=== PATIENT | male | born 1945 | race Caucasian/White ===

== ENCOUNTER 2017-10-21 15:17 | Inpatient (IN) | payer MEDICARE, MEDICAID ==
[~2017-10-21] VITALS: Ht 188 cm; Wt 134.3 kg
--- NOTE | ~2017-10-21 | EC ---
PATIENT:VANDANA WILKINSON DATE OF SERVICE: 10/21/17 SEX: M MEDICAL RECORD: [id number] DATE OF : 41 LOCATION:D.M2 D.211 AGE OF PATIENT: 71 ADMISSION DATE: 10/21/17 REFERRING PHYSICIAN: INTERPRETING PHYSICIAN: HELENA CHAMBERS MD ECHOCARDIOGRAM REPORT ECHO CHARGES 5 ECHO LIMITED Date: 10/26 CLINICAL DIAGNOSIS: MO ECHOCARDIOGRAPHIC MEASUREMENTS (adult normal given) AC root (d.<3.7cm) 3.7 cm LV Septum d (<1.2 cm> 2.7 cm Valve Excursion 1.9 cm LV Septum (systole) 3.4 cm Left Atria (s.<4.0cm> 5.5 cm LVPW d(<1.2cm) 2.9 cm RV (d.<2.3cm) 4.8 cm LVPW (sytole) 3.3 cm LV diastole(<5.6CM) 4.1 cm MV E-F(>70mm/sec) cm LV systole 2.1 cm LVOT Diameter 1.8 cm MV exc.(>10mm) 2.2 cm Est.ejection fraction (50-75%) % DOPPLER: LVIT cm/sec A cm/sec E cm/sec LA cm/sec RVSP 18 mmHg LVOT cm/sec AOP1/2T m/s Asc. Ao cm/sec RVOT cm/sec RA cm/sec PA cm/sec AV Gradient Peak mmHg AV Mean mmHg AV Area cm MV Gradient Peak mmHg MV Mean mmHg MV Area cm COMMENTS: Credit Collections Clerk: Morales ROGERS Coater Smoking Pipe: 1 Dr. Chambers TAPE# PACS Pericardial Effusion N DATE OF SERVICE: 10/26/2017 PROCEDURE: Echocardiogram. FINDINGS: 1. Left ventricular chamber size is within normal limits. Left ventricular systolic function is preserved at 55% to 60%. 2. Severe left ventricular hypertrophy is present with reversal of mitral inflow pattern suggestive of diastolic dysfunction from this degree of left ventricular hypertrophy. ECHOCARDIOGRAM REPORT [id number] VANDANA WILKINSON 3. Left atrium is enlarged at 5.5 cm. Right atrium and right ventricle chamber sizes are as well moderately dilated. 4. Valvular structures have normal structure and motion. 5. Doppler interrogation reveals mild mitral regurgitation, mild tricuspid regurgitation, no other valvular insufficiency or stenosis. Pulmonary systolic pressure is normal at 18 mmHg. 6. No evidence of pericardial effusion or left ventricular thrombus. TRANSINT:[id number] Voice Confirmation ID: [id number] DOCUMENT ID: [id number] HELENA CHAMBERS MD at 1741 CC: [id number] DICTATION DATE: 10/27/17 1038 WRAPPING CLERK: 10/27/17 1202 ADM IN [facility] [address] [place] [address]
--- NOTE | ~2017-10-21 | OP ---
PATIENT NAME: VANDANA WILKINSON MEDICAL RECORD: [id number] :41 LOCATION:D.M2 D.2116 ADMISSION DATE:10/21/17 SURGEON: HELENA ARRIETA MD DATE OF OPERATION: 11/01/2017 PROCEDURES: 1. PTCA stent RCA. 2. Selective coronary angiography. 3. Intravascular ultrasound. INDICATION: Angina and coronary artery disease. PROCEDURE IN DETAIL: After informed consent was obtained and after a detailed description of the risks, benefits as well as alternative therapies, the patient elected to proceed with angiogram and angioplasty. The right femoral area was prepped and draped in normal sterile fashion. Right femoral artery was cannulated via modified Seldinger technique with placement of 6-Bahamian sheath. All catheters exchanged through this sheath. FINDINGS: The right coronary artery has a greater than 70% stenosis proximally confirmed by intravascular ultrasound. This was addressed with a 4.0 x 26 Integrity stent. Result was 0% residual stenosis. OVERALL IMPRESSION: Successful percutaneous transluminal coronary angioplasty stent of the right coronary artery going from greater than 70% initial stenosis to 0% residual. TRANSINT:[id number] Voice Confirmation ID: [id number] DOCUMENT ID: [id number] HELENA ARRIETA MD at 1100 CC: [id number] DICTATION DATE: 11/01/17 0948 ORCHARD PRUNER: 11/01/17 1039 DIS IN 11/02/17 [id number] [place] [address]
--- NOTE | ~2017-10-21 | CN ---
PATIENT NAME:VANDANA WILKINSON MEDICAL RECORD: [id number] : 41 LOCATION:RAPHAEL.2307 ADMIT DATE: 10/21/17 ACCOUNT: [id number] CONSULTING PHYSICIAN: HELENA ARRIETA MD REFERRING PHYSICIAN: DILMA WATSON MD DATE OF CONSULTATION: 10/25/2017 DIAGNOSES: 1. Angina. 2. Abnormal ECG. 3. Atrial fibrillation with rapid response. 4. Dermatitis. HISTORY OF PRESENT ILLNESS: This is a gentleman who was admitted with dermatitis, possible cellulitis, possible sepsis, who began having chest discomfort with a very fast heart rate, his heart rate is in the 200 range. He appears to be in atrial fibrillation at 200. He has no cardiac history. He has significant ST depression with this. PHYSICAL EXAMINATION: GENERAL APPEARANCE: Well-nourished, well-developed, appears stated age. Level of distress, comfortable. PSYCHIATRIC: Mental status, alert, normal affect. Orientation, oriented to time, place and person. EYES: Lids and conjunctiva, noninjected. No discharge, no pallor. ENT: Lips, teeth, gums, normal dentition. Oropharynx, no cyanosis, no pallor. NECK: Carotid arteries, bilateral normal upstroke, no bruits, no thrills. JUGULAR VEINS: No jugular venous pressure or distention. CERVICAL LYMPH NODES: Nontender, nonenlarged. THYROID: Not enlarged. Nontender. No nodules. LUNGS: Respiratory effort, unlabored. CHEST: Normal curvature. No thoracic deformity. No chest wall tenderness. Percussion, resonant. Auscultation, clear. No wheezes, no rales, no rhonchi. CARDIOVASCULAR: Precordial exam, nondisplaced. No heaves or pericardial thrills. Rate and rhythm, regular. Heart sounds, normal S1, normal S2. No S3, no gallop, no rub. Systolic murmur, not heard. Diastolic murmur, not heard. EXTREMITIES: No cyanosis, no edema. Peripheral pulses, full and equal in all extremities, except as noted. No bruits appreciated. ABDOMEN: Soft, nondistended. Normal aorta. No bruit. Nontender. No masses. Liver, nontender, no hepatomegaly. Spleen, nontender, no splenomegaly. MUSCULOSKELETAL: No joint tenderness. No joint swelling. No erythema. NEUROLOGICAL: Normal gait, normal strength, normal tone. SKIN: Warm and dry. OVERALL IMPRESSION: Chest pain with markedly abnormal ECG and a heart rate in the 200 range. Obviously, the penn will be pharmacologically slowing the heart. If we cannot slow it, we will perform DC cardioversion. We will try IV Cardizem as well as IV Lopressor for rate control. TRANSINT:[id number] Voice Confirmation ID: [id number] DOCUMENT ID: [id number] CONSULT REPORT [id number] VANDANA WILKINSON, HELENA HOLMAN at 2001 CC: [id number] DICTATION DATE: 10/25/17 1527 EXPENSE CLERK: 10/25/17 1635 ADM IN [facility] [address] [place] [address]
--- NOTE | ~2017-10-21 | HEMODYNAMI ---
PATIENT:VANDANA WILKINSON MEDICAL RECORD: [id number] : 41 LOCATION:[facility] D.2307 ADMISSION DATE: 10/21/17 Generatedon:10/29/201710:16 Patient name: VANDANA WILKINSON Patient #: [id number] SSN: : 1945 Date of study: 10/29/2017 Page: Of Hemodynamic Procedure Report Patient Data Patient Demographics Procedure consent was obtained First Name: VANDANA Gender: Male Last Name: JAJA : 1945 Middle Initial: W Age: 71 year(s) Patient #: [id number] Race: Unknown Additional ID: [id number] Contact details Address: [address] [place] [address] State: [place] City: [place] Zip code: [address] Admission Admission Data Admission Date: 10/21/2017 Admission Time: 18:20 Room #: D.2307 Lab Results Lab Result Date: 10/29/2017 Lab Result Time: 0:00 Biochemistry Name Units Result Min Max BUN mg/dl 18 --(---*)-- 7 18 Creatinine mg/dl 1 --(--*-)-- 0.6 1.3 CBC Name Units Result Min Max Hemoglobin g/dl 41.6 --(----)-* 13.5 17.5 Procedure Procedure Types Cath Procedure Diagnostic Procedure [facility] w/Coronaries FFR/IVUS Intra-Coronary IVUS Initial Sedation Charges Moderate Sedation up to 15 minutes PCI Procedure Coronary Stent Coronary Stent Initial x2 Procedure Description Procedure Date Procedure Date: 10/29/2017 Procedure Start Time: 9:53 Procedure End Time: 10:14 Procedure Staff Name Function Asad Chambers MD Performing Physician Kita Hearn RT Monitor Mega Arana RN Nurse Brianna Goodrich RT Scrub Procedure Data Cath Procedure Fluoroscopy Diagnostic fluoroscopy Total fluoroscopy Time: 5.4 time: 5.4 min min Diagnostic fluoroscopy Total fluoroscopy dose: dose: 1290 mGy 1290 mGy Contrast Material Contrast Material Type Amount (ml) Isovue 300 102 Entry Location Entry Primary Successful Side Size Upsize Upsize Entry Closure Jaime ccessful Closure Location (Fr) 1 (Fr) 2 (Fr) Remarks Device Remarks Radial Right 6 Fr Manual TR band artery Short Compression Estimated blood loss: 10 ml Diagnostic catheters Device Type Used For End Catheter Placement DIAGNOSTIC [place] 110cm 5 Procedure Fr catheter ([id number]) Procedure Complications No complications Procedure Medications Medication Administration Route Dosage Oxygen NC 2 l/min Lidocaine 2% added to field 20 Heparin Flush Bag added to field 2 bags (1000units/500ml NS) 0.9% NaCl I.V. 100 ml/hr Radial Cocktail I.A. 1 syringe (Verapomil 2mg/Nitro 400mcg/Heparin 1500units) Versed I.V. 1 mg Fentanyl I.V. 50 mcg Versed I.V. 1 mg Fentanyl I.V. 50 mcg Heparin Bolus I.V. 4000 units 0.9% NaCl I.V. bolus 250 ml Versed I.V. 1 mg Fentanyl I.V. 50 mcg Hemodynamics Rest HGB: 41.6 (g/dl) Heart Rate: 68 (bpm) Snapshots Pre Cath Intra NCS Post Cath Vital Signs Time Heart Resp SPO2 etCO2 NIBP (mmHg) Rhythm Pain Sedation Rate (ipm) (%) (mmHg) Status Level (bpm) 8:49:24 66 10 95 0 113/70(92) NSR 0 (11) 10(A) , No pain 8:53:58 61 18 94 11.2 131/62(86) NSR 0 (11) 10(A) , No pain 8:58:35 60 16 97 14.9 164/70(133) NSR 0 (11) 10(A) , No pain 9:07:33 62 17 98 0 148/67(0) NSR 0 (11) 10(A) , No pain 9:14:39 61 13 96 17.9 139/71(106) NSR 0 (11) 10(A) , No pain 9:19:02 59 13 96 30.7 145/63(113) NSR 0 (11) 10(A) , No pain 9:23:22 59 15 97 30.7 134/57(103) NSR 0 (11) 10(A) , No pain 9:28:43 59 13 96 24.7 147/59(99) NSR 0 (11) 10(A) , No pain 9:33:03 59 13 96 15.7 157/69(109) NSR 0 (11) 10(A) , No pain 9:37:19 58 13 95 32.2 112/54(81) NSR 0 (11) 10(A) , No pain 9:41:33 56 13 95 31.4 99/50(75) NSR 0 (11) 10(A) , No pain 9:45:39 55 12 96 31.4 101/46(69) NSR 0 (11) 10(A) , No pain 9:49:51 53 12 96 31.4 105/41(66) NSR 0 (11) 10(A) , No pain 9:54:03 56 12 96 31.4 95/44(75) NSR 0 (11) 9(A) , No pain 9:59:02 61 12 94 29.2 Measuring NSR 0 (11) 9(A) , No pain 10:05:58 64 13 95 30.7 78/54(0) NSR 0 (11) 9(A) , No pain 10:10:16 66 12 95 32.2 97/44(68) NSR 0 (11) 9(A) , No pain 10:14:22 64 13 95 29.9 115/53(85) NSR 0 (11) 10(A) , No pain Medications Time Medication Route Dose Verified Delivered Reason Note s Effectiveness by by 8:47:26 Oxygen NC 2 l/min Asadaura Ayoub used for Reyes Arana RN procedure 8:47:33 Lidocaine 2% added 20ml Asad Kamara for local to vial Reyes Chambers MD anesthetic field 8:47:39 Heparin Flush added 2 bags Asad Kamara used for Bag to Reyes Chambers MD procedure (1000units/500ml field NS) 8:47:46 0.9% NaCl I.V. 100 Asad Ayoub Per physician ml/hr Reyes Arana RN 8:57:04 Radial Cocktail I.A. 1 Asad Kamara for (Verapomil syringe Reyes Chambers MD vasodilation 2mg/Nitro 400mcg/Heparin 1500units) 9:52:27 Versed I.V. 1 mg Asad Ayoub for sedation Reyes Arana RN 9:52:32 Fentanyl I.V. 50 mcg Asad Howardie for sedation Reyes Arana RN 9:54:34 0.9% NaCl I.V. 250 ml Asad Howardie Per physician bolus Reyes Arana RN 9:55:41 Versed I.V. 1 mg Asad Buffie for sedation Reyes Arana RN 9:55:45 Fentanyl I.V. 50 mcg Asad Buffie for sedation Reyes Arana RN 9:59:23 Heparin Bolus I.V. 4000 Asad Buffie for units Reyes Arana RN anticoagulation 10:02:55 Versed I.V. 1 mg Asad Buffie for sedation Reyes Arana RN 10:02:59 Fentanyl I.V. 50 mcg Asad Howardie for sedation Reyes Arana RN Procedure Log Time Note 8:20:07 Lab Result : BUN 18 mg/dl 8:20:07 Lab Result : Hemoglobin 41.6 g/dl 8:20:07 Lab Result : Creatinine 1 mg/dl 8:20:37 Diagnostic Cath status Elective 8:20:38 Asad Chambers MD sent for patient. Start room use. 8:20:40 Time tracking: Regular hours (M-F 7:00 - 5:00) 8:20:48 Plan of Care:Hemodynamics will remain stable., Cardiac rhythm will remain stable., Comfort level will be maintained., Respiratory function will remain adequate., Patient/ family verbilizes understanding of procedure., Procedure tolerated without complication., Recovers from procedure without complications.. 8:45:46 Patient received from ICU to [facility] 2 Alert and oriented. Tansferred to table in Supine position. 8:45:49 Warm blankets applied, and alan hugger turned on for patient comfort. 8:45:50 Correct patient and procedure confirmed by team. 8:45:51 Signed procedure consent form obtained from patient. 8:45:52 ECG and BP/O2 sat monitors applied to patient. 8:45:57 Baseline sample Acquired. 8:46:00 Rhythm: sinus rhythm 8:46:01 Full Disclosure recording started 8:46:06 H&P Date Dictated: 10/29/2017 Within 30 days and on chart., H&P Addendum completed by physician on day of procedure. (MUST COMPLETE FOR ALL OUTPATIENTS). 8:46:07 Pre-procedure instructions explained to patient. 8:46:07 Pre-op teaching completed and patient verbalized understanding. 8:46:09 Family in waiting room. 8:46:10 Patient NPO since Midnight. 8:46:13 Is the patient allergic to Iodine/contrast media? No. 8:46:14 Was the patient premedicated? No 8:46:15 Is patient on blood thinner?Yes 8:46:18 ACC The patient was administered the following blood thiners within the last 24 hours: ACCPlavix 8:47:26 Oxygen 2 l/min NC was administered by Mega Arana RN; used for procedure; 8:47:33 Lidocaine 2% 20ml vial added to field was administered by Asad Chambers MD; for local anesthetic; 8:47:39 Heparin Flush Bag (1000units/500ml NS) 2 bags added to field was administered by Asad Chambers MD; used for procedure; 8:47:46 0.9% NaCl 100 ml/hr I.V. was administered by Mega Arana RN; Per physician; 8:47:49 Vital chart was started 8:48:43 Patient diabetic? Yes. 8:48:44 If diabetic: On Metformin? Yes 8:48:47 If on Metformin: Last Dose? 10/27/2017 8:48:50 Previous problem with sedation/anesthesia? No ? 8:48:54 Snore? No 8:48:55 Sleep apnea? No 8:48:56 Deviated septum? No 8:48:57 Opens mouth fully? Yes 8:48:58 Sticks out tongue? Yes 8:48:59 Airway obstruction? No ? 8:49:05 Dentures? No ? 8:49:09 Pre procedure: right dorsailis pedis pulse 2+ Normal; easily identifiable; not easily obliterated 8:49:11 Pre procedure: left dorsailis pedis pulse 2+ Normal; easily identifiable; not easily obliterated 8:49:13 Patient pain scale 0/10 ?. 8:49:26 IV patent on arrival in port with 0.9% NaCl at KVO. 8:49:29 Lab results completed and on chart. 8:49:35 Right Radial & Right Groin area was prepped with chlora-prep and draped in sterile fashion 8:49:36 Alarms reviewed by R. N. 8:49:36 Sharps counted by scrub and verified by R.N. 8:57:04 Radial Cocktail (Verapomil 2mg/Nitro 400mcg/Heparin 1500units) 1 syringe I.A. was administered by Asad Chambers MD; for vasodilation; 9:01:21 Use device set Radial Dx or PCI 9:01:29 ACIST Syringe (60180) opened to sterile field. 9:01:31 Medline Cath Pack ([id number]) opened to sterile field. 9:01:32 Bag Decanter (2002S) opened to sterile field. 9:01:32 DIAGNOSTIC WIRE .035 260cm J wire (335839) opened to sterile field. 9:01:33 ACIST Hand Control (16417) opened to sterile field. 9:01:34 ACIST Manifold (13698) opened to sterile field. 9:01:35 Tegaderm 4 x 4 (1626W) opened to sterile field. 9:01:36 MBrace Wrist Support ([id number]) opened to sterile field. 9:01:43 SHEATH 6Fr Prelude Radial ([id number]) opened to sterile field. 9:02:20 STOPCOCK 3-Way Large Bore ([id number]) opened to sterile field. 9:17:32 Zero performed for pressure channel P1 9:17:50 Physician arrived 9:52:03 --------ALL STOP TIME OUT------ 9:52:05 Final Timeout: patient, procedure, and site verified with staff and physician. All members of the team are in agreement. 9:52:08 Right Radial & Right Groin site verified by team. 9:52:12 Physical assessment completed. ASA score P 2 - A patient with mild systemic disease as per Asad Chambers MD. 9:52:15 Sedation plan: IV Moderate Sedation Medication:Versed, Fentanyl 9:52:27 Versed 1 mg I.V. was administered by Mega Arana RN; for sedation; 9:52:32 Fentanyl 50 mcg I.V. was administered by Mega Arana RN; for sedation; 9:52:33 Procedure started. 9:53:07 Local anesthetic to right radial artery with Lidocaine 2% by Asad Chambers MD.INITIAL ACCESS ONLY 9:53:53 A 6 Fr Short sheath was inserted into the Right Radial artery 9:54:34 0.9% NaCl 250 ml I.V. bolus was administered by Mega Arana RN; Per physician; 9:54:57 A DIAGNOSTIC [place] 110cm 5 Fr catheter (529467) was advanced over the wire and used for Procedure. 9:55:22 LV angiography performed. 9:55:41 Versed 1 mg I.V. was administered by Mega Arana RN; for sedation; 9:55:45 Fentanyl 50 mcg I.V. was administered by Mega Arana RN; for sedation; 9:56:05 Catheter removed. 9:56:14 EF : 50 % 9:56:31 LCA angiography performed. 9:56:36 RCA angiography performed. 9:56:48 Catheter removed. 9:59:18 GUIDE 6FR XB 3.5 catheter ([id number]) opened to sterile field. 9:59:21 INFLATOR Merit BasixCompak (DC3461) opened to sterile field. 9:59:22 CHOICE PT Extra Support 182cm wire ([id number]) opened to sterile field. 9:59:23 Heparin Bolus 4000 units I.V. was administered by Mega Arana RN; for anticoagulation; 9:59:23 Alturas [place] IVUS Catheter (82884S) opened to sterile field. 9:59:53 6 Fr XB3.5 guide catheter was inserted over the wire 10:00:01 choice PT wire advanced. 10:00:54 Wire advanced across lesion. 10:00:57 IVUS catheter advanced over wire. 10:01:04 IVUS catheter removed over wire. 10:02:55 Versed 1 mg I.V. was administered by Mega Arana RN; for sedation; 10:02:59 Fentanyl 50 mcg I.V. was administered by Mega Arana RN; for sedation; 10:03:02 Place stent Inflation Number: 1 A INTEGRITY RX 3.5 x 18 stent ([id number]) was prepped and advanced across the Mid CX. The stent was deployed at 13 AZAEL for 0:10 (min:sec). 10:03:28 Wire redirected to LAD. 10:05:02 Inflate balloon Inflation number: 1 A INTEGRITY RX 3.5 x 15 stent ([id number]) was prepped and advanced across the Mid LAD, then inflated to 17 AZAEL for 0:10 (min:sec). 10:06:27 Wire removed. 10:06:54 Wire redirected to CX. 10:09:54 Place stent Inflation Number: 1 A INTEGRITY RX 3.0 x 09 stent ([id number]) was prepped and advanced across the Undefined1. The stent was deployed at 13 AZAEL for 0:10 (min:sec). 10:10:11 TR BAND Large ([id number]) opened to sterile field. 10:11:12 Wire removed. 10:11:28 Sheath removed intact; hemostasis achieved with Manual Compression to the Right Radial artery. 10:11:32 Procedure ended.(Physican Out) 10:11:46 Fluoroscopy time 05.40 minutes. 10:11:51 Fluoroscopy dose: 1290 mGy 10:11:51 Flurop Dose total: 1290 10:12:01 Contrast amount:Isovue 300 102ml. 10:12:02 Sharps counted by scrub and verified by R.N. 10:12:06 TR band inflated with 11cc of air. 10:12:08 Insertion/operative site no bleeding no hematoma. 10:12:15 Post right radial artery:stable 10:12:19 Post-procedure physical assessment completed. ASA score P 2 - A patient with mild systemic disease as per Asad Chambers MD. 10:12:22 Post procedure rhythm: sinus rhythm 10:12:26 Estimated blood loss: 10 ml 10:12:28 Post procedure instruction explained to patient.Patient verbalizes understanding. 10:13:14 Procedure type changed to Cath procedure, Diagnostic procedure, LHC, LHC w/Coronaries, FFR/IVUS, Intra-Coronary IVUS Initial, Sedation Charges, Moderate Sedation up to 15 minutes, PCI procedure, Coronary Stent, Coronary Stent Initial x2 10:13:15 Procedure and supply charges have been captured, reviewed, submitted and are correct. 10:13:47 Procedure Complication : No complications 10:13:50 Vital chart was stopped 10:13:53 See physician's report for complete and final results. 10:14:06 Patient transfered to ICU with Bed. 10:14:08 Procedure ended. 10:14:08 Full Disclosure recording stopped 10:14:12 End room use (Document Last) Intervention Summary Intervention Notes Time ActionType Lesion and Equipment Action# Pressure Duration Attributes Used 10:03:02 Place stent Mid CX INTEGRITY RX 1 13 00:10 3.5 x 18 stent ([id number]) 10:05:02 Inflate Mid LAD INTEGRITY RX 1 17 00:10 balloon 3.5 x 15 stent ([id number]) 10:09:54 Place stent Undefined1 INTEGRITY RX 1 13 00:10 3.0 x 09 stent ([id number]) Device Usage Item Name Manufacture Quantity Catalog Number Hospital Part Current M inimal Lot# / Charge Number Stock Stock Serial# Code ACIST Syringe Acist 1 49093 341145 930952 948655 2 0 (26791) Medical Systems Inc Medline Cath Cardinal 1 [id number] 021230 08741 282889 5 Pack Health ([id number]) Bag Decanter Microtek 1 2001S 207292 50212 991466 5 () Medical Inc. DIAGNOSTIC WIRE St Alek 1 347591 618774 060357 818180 3 0 .035 260cm J wire (556336) ACIST Hand Acist 1 07911 566062 676537 185030 5 Control (47555) Medical Systems Inc ACIST Manifold Acist 1 90816 223351 532975 553751 5 (96780) Medical Systems Inc Tegaderm 4 x 4 3M 1 1626W 317378 021926 170729 5 (1626W) MBrace Wrist Advanced 1 140-0250-00 075617 16340 730733 5 Support Vascular ([id number]) Dynamics SHEATH 6Fr Merit 1 [id number] 681697 052157 272982 5 Prelude Radial Medical ([id number]) STOPCOCK 3-Way Cook Medical 1 I28646 081222 3029 564676 5 Large Bore ([id number]) DIAGNOSTIC Terumo 1 40-4599 451986 146317 898177 5 [place] 110cm 5 Fr catheter (168895) GUIDE 6FR XB Cardinal 1 [id number] 470987 918855 709860 2 3.5 catheter Health (72720449) INFLATOR Merit Merit 1 XU3850 655801 353332 310523 1 5 Nurture, Inc. (ZC9267) CHOICE PT Extra [place] 1 [id number] 597429 612596 485312 5 Support 182cm Scientific wire ([id number]) Alturas Alturas 1 20933X 548217 235512 235632 8 [place] IVUS Catheter (12978S) INTEGRITY RX Medtronic 1 [id number] 462664 813977 980694 5 [id number] 3.5 x 18 stent ([id number]) INTEGRITY RX Medtronic 1 [id number] 139408 876025 520539 5 [id number] 3.5 x 15 stent ([id number]) INTEGRITY RX Medtronic 1 [id number] 093079 053032 364375 5 [id number] 3.0 x 09 stent ([id number]) TR BAND Large Terumo 1 [id number] 790071 187434 940438 4 0 ([id number]) Signature Audit [place] Stage Time Signature Unsigned Intra-Procedure 10/29/2017 Kita Hearn 10:16:53 AM RT(R) Signatures Monitor : Kita Hearn Signature : RT Date : Time : [place] [id number] [place] [address]
--- NOTE | ~2017-10-21 | CN ---
PATIENT NAME:VANDANA WILKINSON MEDICAL RECORD: [id number] : 41 LOCATION:[facility] D.2116 ADMIT DATE: 10/21/17 ACCOUNT: [id number] CONSULTING PHYSICIAN: LIDIA SALGADO MD REFERRING PHYSICIAN: STALIN ALFARO MD DATE OF CONSULTATION: 10/26/2017 CONSULT REQUESTING PHYSICIAN: Stalin Alfaro MD REASON FOR CONSULTATION: Right lower lobe pneumonia, right pleural effusion. HISTORY OF PRESENT ILLNESS: Mr. Wilkinson is a 71-year-old gentleman who was admitted on 10/21 with a skin rash. Yesterday, the patient has acute chest pain and dyspnea and evaluation showed that the patient has acute myocardial infarction. He was also in atrial fibrillation and the rate has been controlled. Seen by Dr. Chambers. REVIEW OF SYSTEMS: As in history of present illness. PAST MEDICAL HISTORY: 1. Diabetes mellitus. 2. Hypertension. 3. Tobacco dependence syndrome, but no documented chronic obstructive pulmonary disease. PAST SURGICAL HISTORY: Brain aneurysm repair in February 1981. ALLERGIES: HE IS ALLERGIC TO PENICILLIN. MEDICATIONS: He is on vancomycin IV, Levaquin IV, Rocephin IV. PERSONAL AND SOCIAL HISTORY: The patient current everyday smoker, almost 2 pack per day. He is a nondrinker. FAMILY HISTORY: Noncontributory. PHYSICAL EXAMINATION: GENERAL: Now, the patient is lying comfortably in bed. He is not in acute distress. VITAL SIGNS: The blood pressure is 201/85, pulse is 62, respiration is 18, temperature is 98.4, and SpO2 is 97% on room air. HEENT: Conjunctivae are pink. Sclerae are not icteric. NECK: Supple, no JVD. CHEST: There are crackles at the right base. No wheezing. HEART: Rhythm regular, normal heart sound, no murmur. ABDOMEN: Soft, bowel sounds present. No hepatosplenomegaly. RECTAL: Deferred. EXTREMITIES: No cyanosis, no clubbing. There is 1+ pedal edema. SKIN: There is a skin rash, which is scaling now. IMAGING: Chest radiograph on the 25 October, there is a right-sided pleural effusion. There is atelectasis and infiltrate in the right lower lobe. There are increased interstitial marking. LABORATORY DATA: CBC: WBC 11,000, hemoglobin 13.2, hematocrit 41, the platelet CONSULT REPORT [id number] VANDANA WILKINSON count 206. Chemistry: Sodium 142, potassium 4.1, BUN is 18, creatinine 1.1, glucose 110. ABG: The pH was 7.38, pCO2 is 39.4, the pO2 is 136. Cardiac enzymes, the troponin is 2.05. IMPRESSION: 1. Acute myocardial infarction. 2. Pneumonia, right lower lobe, most likely community-acquired pneumonia. 3. Right pleural effusion, possible parapneumonic. 4. Tobacco dependence syndrome, suspect chronic obstructive pulmonary disease. 5. Leukocytosis. 6. Atrial fibrillation. 7. Skin rash. RECOMMENDATION: 1. Continue the present antibiotic. 2. Albuterol and ipratropium nebulizer. 3. Small dose of methylprednisolone IV. 4. We will check the decubitus film. If there is any significant fluid, the patient will need thoracentesis. Dr. Alfaro, thank you for involving me in the care of Mr. Wilkinson. TRANSINT:[id number] Voice Confirmation ID: [id number] DOCUMENT ID: [id number] LIDIA SALGADO MD at 1110 CC: [id number] DICTATION DATE: 10/26/17 1413 HOME CARE MANAGER: 10/26/17 1457 DIS IN 11/02/17 [id number] [place] [address]
--- NOTE | ~2017-10-21 | OP ---
PATIENT NAME: VANDANA WILKINSON MEDICAL RECORD: [id number] :41 LOCATION:D.M2 D.2116 ADMISSION DATE:10/21/17 SURGEON: HELENA ARRIETA MD DATE OF OPERATION: 10/29/2017 PROCEDURES: 1. PTCA and stent to the LAD. 2. PTCA and stent to the left circumflex. 3. Left heart catheterization. 4. Selective coronary angiography. 5. Intravascular ultrasound. 6. Left ventriculogram. INDICATION: Angina and coronary artery disease. PROCEDURE IN DETAIL: After informed consent was obtained and after a detailed description of risks, benefits as well as alternative therapies, the patient elected to proceed with angiogram and angioplasty. The right radial area was prepped and draped in normal sterile fashion. Right radial artery was cannulated via modified Seldinger technique with placement of 6-Croatian sheath. All catheters were exchanged for sheath. FINDINGS: The left ventriculogram was performed in standard 30-degree LOVELL view reveals preserved cardiac wall motion, ejection fraction 55%. SELECTIVE CORONARY ANGIOGRAPHY: 1. Left main is with no significant angiographic disease. 2. Left anterior descending has a 90% stenosis in the proximal vessel. 3. Left circumflex has 80% stenosis in the mid vessel confirmed by intravascular ultrasound. 4. Right coronary has at least 70% stenosis times 2. INSTRUCTIONAL LEADER AND STENT OF THE LAD AND CIRCUMFLEX: The LAD was addressed with a 3.5 x 15 mm Integrity and circumflex with a 3.5 x 18 and 3.0 x 8, both Integrity stents. Result was 0% residual stenosis. OVERALL IMPRESSION: Successful PTCA and stent of the left anterior descending and circumflex, both going from 80% to 90% initial stenosis to 0% residual stenosis. PLAN: PTCA and stent of the RCA in the near future. TRANSINT:[id number] Voice Confirmation ID: [id number] DOCUMENT ID: [id number] HELENA ARRIETA MD at 1746 CC: [id number] DICTATION DATE: 10/29/17 1012 CURING PRESS OPERATOR: 10/29/17 1047 ADM IN [facility] [address] [place] [address]
--- NOTE | ~2017-10-21 | HEMODYNAMI ---
PATIENT:VANDANA WILKINSON MEDICAL RECORD: [id number] : 41 LOCATION:[facility] D.2116 ADMISSION DATE: 10/21/17 Generatedon:11/01/201710:02 Patient name: VANDANA WILKINSON Patient #: [id number] SSN: : 1945 Date of study: 11/01/2017 Page: Of Hemodynamic Procedure Report Patient Data Patient Demographics Procedure consent was obtained First Name: VANDANA Gender: Male Last Name: JAJA : 1945 Middle Initial: W Age: 71 year(s) Patient #: [id number] Race: Unknown Additional ID: [id number] Contact details Address: [address] [address] State: [place] City: [place] Zip code: [address] Past Medical History Allergies Allergen Reaction Date Comments Reported Penicillins 11/01/2017 Admission Admission Data Admission Date: 10/21/2017 Admission Time: 18:20 Room #: D.2116 Lab Results Lab Result Date: 10/29/2017 Lab Result Time: 0:00 Biochemistry Name Units Result Min Max BUN mg/dl 18 --(---*)-- 7 18 Creatinine mg/dl 1 --(--*-)-- 0.6 1.3 CBC Name Units Result Min Max Hemoglobin g/dl 41.6 --(----)-* 13.5 17.5 Procedure Procedure Types Cath Procedure PCI Procedure Coronary Stent Coronary Stent Initial Procedure Description Procedure Date Procedure Date: 11/01/2017 Procedure Start Time: 9:30 Procedure End Time: 9:44 Procedure Staff Name Function Itzel Butler RT Monitor Asad Chambers MD Performing Physician Daron Andino RN Nurse Venita Garcia RT Scrub Procedure Data Cath Procedure Fluoroscopy Diagnostic fluoroscopy Total fluoroscopy Time: 3.1 time: 3.1 min min Diagnostic fluoroscopy Total fluoroscopy dose: 264 dose: 264 mGy mGy Contrast Material Contrast Material Type Amount (ml) Isovue 300 24 Entry Location Entry Primary Successful Side Size Upsize Upsize Entry Closure Succes sful Closure Location (Fr) 1 (Fr) 2 (Fr) Remarks Device Remarks Femoral Right 6 Fr Exoseal artery Short Estimated blood loss: 10 ml Procedure Complications No complications Procedure Medications Medication Administration Route Dosage 0.9% NaCl I.V. 100 ml/hr Oxygen etCO2 Nasal cannula 2 l/min Heparin Flush Bag added to field 2 bags (1000units/500ml NS) Lidocaine 2% added to field 20 Versed I.V. 2 mg Fentanyl I.V. 100 mcg Heparin Bolus I.V. 4000 units Fentanyl I.V. 100 mcg Hemodynamics Rest HGB: 41.6 (g/dl) Heart Rate: 64 (bpm) Snapshots Pre Cath Intra NCS Post Cath Vital Signs Time Heart Resp SPO2 etCO2 NIBP (mmHg) Rhythm Pain Sedation Rate (ipm) (%) (mmHg) Status Level (bpm) 9:13:03 60 15 95 37 153/77(128) NSR 0 (11) 10(A) , No pain 9:18:15 58 16 96 34.7 149/46(113) NSR 0 (11) 10(A) , No pain 9:23:14 67 17 98 36.3 152/85(130) NSR 0 (11) 10(A) , No pain 9:28:11 55 14 99 34.7 150/82(129) NSR 0 (11) 10(A) , No pain 9:33:08 57 15 98 27.2 159/81(137) NSR 0 (11) 10(A) , No pain 9:38:07 56 14 98 0.7 153/79(130) NSR 0 (11) 10(A) , No pain 9:43:06 58 11 99 37.7 155/80(122) NSR 0 (11) 10(A) , No pain Medications Time Medication Route Dose Verified Delivered Reason Notes Effectiveness by by 9:10:49 0.9% NaCl I.V. 100 Daron Daron Per physician ml/hr Thu Andino RN RN 9:11:02 Oxygen etCO2 2 Daron Daron Per physician Nasal l/min Thu Andino cannula RN RN 9:11:15 Heparin Flush added 2 Daron Daron used for Bag to bags Thu Andino procedure (1000units/500ml field RN RN NS) 9:11:28 Lidocaine 2% added 20ml Daron Daron for local to vial Thu Andino anesthetic field RN RN 9:28:24 Versed I.V. 2 mg Daron Daron for sedation Thu Andino RN RN 9:28:34 Fentanyl I.V. 100 Daron Daron for sedation mcg Thu Andino RN RN 9:34:18 Heparin Bolus I.V. 4000 Daron Daron for units Thu Andino anticoagulation RN RN 9:58:14 Fentanyl I.V. 100 Daron Daron for back pain abrahan Andino RN sapphire stylus grinder Log Time Note 8:37:40 Time tracking: Regular hours (M-F 7:00 - 5:00) 8:38:29 Plan of Care:Hemodynamics will remain stable., Cardiac rhythm will remain stable., Comfort level will be maintained., Respiratory function will remain adequate., Patient/ family verbilizes understanding of procedure., Procedure tolerated without complication., Recovers from procedure without complications.. 8:46:18 Daron Andino RN sent for patient. Start room use. 8:57:29 Patient received from PCU to CCL 1 Alert and oriented. Tansferred to table in Supine position. 8:57:30 Correct patient and procedure confirmed by team. 8:57:30 Warm blankets applied, and alan hugger turned on for patient comfort. 8:57:32 Signed procedure consent form obtained from patient. 8:57:33 ECG and BP/O2 sat monitors applied to patient. 8:57:34 Full Disclosure recording started 9:10:49 0.9% NaCl 100 ml/hr I.V. was administered by Daron Andino RN; Per physician; 9:11:02 Oxygen 2 l/min etCO2 Nasal cannula was administered by Daron Andino RN; Per physician; 9:11:15 Heparin Flush Bag (1000units/500ml NS) 2 bags added to field was administered by Daron Andino RN; used for procedure; 9:11:28 Lidocaine 2% 20ml vial added to field was administered by Daron Andino RN; for local anesthetic; 9:11:43 Vital chart was started 9:12:30 Rhythm: sinus rhythm 9:13:28 H&P Date Dictated: 10/25/2017 Within 30 days and on chart.. 9:13:29 Pre-op teaching completed and patient verbalized understanding. 9:13:29 Pre-procedure instructions explained to patient. 9:13:31 Family in patients room. 9:13:32 Patient NPO since Midnight. 9:13:40 Patient allergic to Penicillins 9:13:46 Is the patient allergic to Iodine/contrast media? No. 9:13:48 Is patient on blood thinner?Yes 9:14:09 ACC The patient was administered the following blood thiners within the last 24 hours: ACCPlavix 9:14:28 Patient diabetic? Yes. 9:14:29 If diabetic: On Metformin? Yes 9:14:33 If on Metformin: Last Dose? 10/27/2017 9:14:37 Snore? No 9:14:37 Previous problem with sedation/anesthesia? No ? 9:14:38 Sleep apnea? No 9:14:39 Deviated septum? No 9:14:40 Opens mouth fully? Yes 9:14:41 Sticks out tongue? Yes 9:14:43 Airway obstruction? No ? 9:14:44 Dentures? No ? 9:14:47 Pre procedure: right dorsailis pedis pulse 1+ Palpable, but thready & weak; easily obliterated 9:14:49 Patient pain scale 0/10 ?. 9:14:55 IV patent on arrival in port, Lt subclavian with 0.9% NaCl at KVO. 9:15:14 Lab results completed and on chart. 9:15:18 Right groin area was prepped with chlora-prep and draped in sterile fashion 9:15:19 Sharps counted by scrub and verified by R.N. 9:15:19 Alarms reviewed by R. N. 9:15:25 Use device set CATH PACK 9:15:26 ACIST Syringe (74896) opened to sterile field. 9:15:27 ACIST Manifold (43433) opened to sterile field. 9:15:27 ACIST Hand Control (70553) opened to sterile field. 9:15:28 Medline Cath Pack ([id number]) opened to sterile field. 9:15:29 DIAGNOSTIC WIRE .035 260cm J wire (052054) opened to sterile field. 9:15:29 Bag Decanter (2002) opened to sterile field. 9:15:31 Use device set TAUTH PCI 9:15:32 INFLATOR Merit BasixCompak (WH6551) opened to sterile field. 9:15:34 SHEATH Prelude 6Fr 0.035 (VQL-3P-21-035) opened to sterile field. 9:15:36 CHOICE PT Extra Support 182cm wire ([id number]) opened to sterile field. 9:16:01 Baseline sample Acquired. 9:16:12 Zero performed for pressure channel P1 9:16:15 Zero performed for pressure channel P1 9:16:29 Physician paged 9:27:40 Final Timeout: patient, procedure, and site verified with staff and physician. All members of the team are in agreement. 9:27:42 Right groin site verified by team. 9:27:46 Physical assessment completed. ASA score P 2 - A patient with mild systemic disease as per Asad Chambers MD. 9:27:49 Sedation plan: IV Moderate Sedation Medication:Versed, Fentanyl 9:28:24 Versed 2 mg I.V. was administered by Daron Andino RN; for sedation; 9:28:34 Fentanyl 100 mcg I.V. was administered by Daron Andino RN; for sedation; 9:30:48 Procedure started. 9:30:57 Local anesthetic to right femoral artery with Lidocaine 2% by Asad Chambers MD.INITIAL ACCESS ONLY 9:31:37 A 6 Fr Short sheath was inserted into the Right Femoral artery 9:32:45 [place] Nap[place]ute Eagleye IVUS Catheter (55814M) opened to sterile field. 9:32:46 GUIDE 6FR HS II catheter ([id number]) opened to sterile field. 9:33:00 6 Fr HS II guide catheter was inserted over the wire 9:34:13 CHOICE PT ES wire advanced. 9:34:18 Heparin Bolus 4000 units I.V. was administered by Daron Andino RN; for anticoagulation; 9:34:41 IVUS catheter advanced over wire. 9:34:52 IVUS pass to RCA lesion performed. 9:36:22 IVUS catheter removed over wire. 9:38:07 Place stent Inflation Number: 1 A INTEGRITY RX 4.0 x 26 stent ([id number]) was prepped and advanced across the Mid RCA. The stent was deployed at 17 AZAEL for 0:09 (min:sec). 9:38:27 Wire removed. 9:38:27 Stent catheter was removed intact over wire. 9:38:28 Guide catheter removed. 9:38:43 Sheath removed intact; hemostasis achieved with Exoseal to the Right Femoral artery. 9:38:45 Procedure ended.(Physican Out) 9:38:56 Fluoroscopy time 03.10 minutes. 9:39:00 Fluoroscopy dose: 264 mGy 9:39:00 Flurop Dose total: 264 9:39:03 Contrast amount:Isovue 300 24ml. 9:39:05 Sharps counted by scrub and verified by R.N. 9:39:08 Insertion/operative site no bleeding no hematoma. 9:39:14 Post-op/insertion site Right Femoral artery dressed using a 4 x 4 and Tegaderm. 9:39:18 Post right femoral artery:stable, clean and dry 9:40:52 Post Procedure Pulses reassessed and unchanged 9:40:56 Post-procedure physical assessment completed. ASA score P 2 - A patient with mild systemic disease as per Asad Chambers MD. 9:40:58 Post procedure rhythm: unchanged. 9:41:01 Estimated blood loss: 10 ml 9:41:03 Patient needs reinforcement of post procedure teaching. 9:41:03 Post procedure instruction explained to patient.Patient verbalizes understanding. 9:41:18 Procedure Complication : No complications 9:41:20 See physician's report for complete and final results. 9:41:43 EXOSEAL 6Fr (EX600) opened to sterile field. 9:41:44 Tegaderm 4 x 4 (1626W) opened to sterile field. 9:43:28 Post right femoral artery:bleeding 9:43:38 Femstop placed over the right femoral artery at 150 mmHg. Hemostasis achieved. 9:43:47 FEMSTOP Gold ([id number]) opened to sterile field. 9:44:08 Procedure and supply charges have been captured, reviewed, submitted and are correct. 9:44:09 Vital chart was stopped 9:44:12 Report given to PCU. 9:44:24 Full Disclosure recording stopped 9:58:14 Fentanyl 100 mcg I.V. was administered by Daron Andino RN; for back pain; 10:01:38 Patient transfered to PCU with Bed. 10:01:43 Procedure ended. 10:01:53 End room use (Document Last) Intervention Summary Intervention Notes Time ActionType Lesion and Equipment Action# Pressure Duration Attributes Used 9:38:07 Place stent Mid RCA INTEGRITY RX 1 17 00:09 4.0 x 26 stent ([id number]) Device Usage Item Name Manufacture Quantity Catalog Number Hospital Part Current Minimal Lot# / Charge Number Stock Stock Serial# Code ACIST Syringe Acist 1 93792 598821 956273 275980 20 (74536) [employer] Inc ACIST Hand Acist 1 46280 748867 866813 249046 5 Control (57097) [employer] Inc ACIST Manifold Acist 1 87501 158592 195851 680934 5 (06516) [employer] Inc Medline Cath Cardinal 1 [id number] 888484 50217 044868 5 Pack Health ([id number]) Bag Decanter Microtek 1 2001S 455892 22473 029612 5 (2001S) Medical Inc. DIAGNOSTIC WIRE St Alek 1 507150 642948 475558 829728 30 .035 260cm J wire (832463) INFLATOR Merit Merit 1 NA9927 925580 563640 062314 15 [place]rees (MP2668) SHEATH Prelude Merit 1 WSW-3X-31-35 600437 9067152 287424 5 6Fr 0.035 Medical (RSA-9O-67-035) CHOICE PT Extra [place] 1 [id number] 680579 693787 184142 5 Support 182cm Scientific wire ([id number]) [place] 1 31407O 052804 933825 499787 8 [place] Eagleye IVUS Catheter (85822A) GUIDE 6FR HS II Medtronic 1 [id number] 275824 62462 240008 1 catheter ([id number]) INTEGRITY RX Medtronic 1 [id number] 625546 543562 633549 5 [id number] 4.0 x 26 stent ([id number]) EXOSEAL 6Fr Cardinal 1 EX600 623022 212091 121427 10 (EX600) Health Tegaderm 4 x 4 3M 1 1626W 783746 104635 191511 5 (1626W) FEMSTOP Gold St Alek 1 [id number] 173512 530253 295915 5 ([id number]) Signature Audit [place] Stage Time Signature Unsigned Intra-Procedure 11/01/2017 Itzel Robbins Counts 9:44:43 AM Counts RT(R) RT(R) 11/01/2017 9:46:15 AM Intra-Procedure 11/01/2017 Itzel Robbins Counts 9:47:35 AM Counts RT(R) RT(R) 11/01/2017 9:55:22 AM Intra-Procedure 11/01/2017 Itzel 10:02:09 AM Counts RT(R) Signatures Monitor : Itzel Signature : Counts RT Date : Time : [id number] [facility] [place] [address]
[2017-10-21] MEDS ORDERED: GEMFIBROZIL600 MG PO (15:27)
[2017-10-21] MEDS ORDERED: GLUCOPHAGE1000 MG PO (15:27)
[2017-10-21] MEDS ORDERED: FUROSEMIDE20 MG PO (15:28)
[2017-10-21] MEDS ORDERED: VIBRAMYCIN 100100 MG (15:28)
[2017-10-21] MEDS ORDERED: VASOTEC20 MG PO (15:29)
[2017-10-21] MEDS ORDERED: BYSTOLIC5 MG PO (15:29)
[2017-10-21 16:57] LABS: BASOPHILS 0.7 % (0-2); EOSINOPHILS 10.2 % (0-7); HEMATOCRIT 44.6 % (42.0-54.0); HEMOGLOBIN 14.9 g/dL (13.5-17.5); IMMATURE GRANULOCYTES 0.2 % (0-5); LYMPHOCYTES 10.1 % (15-50); MCH 29.9 pg (26.0-34.0); MCHC 33.4 g/dL (31.0-37.0); MCV 89.6 fL (80.0-100.0); MEAN PLATELET VOLUME 9.1 fL (7.4-10.4); MONOCYTES 5.8 % (2-11); PLATELET COUNT 206 10x3/uL (130-400); RBC 4.98 10x6/uL (4.20-6.10); RDW 14.7 % (11.5-14.5); WBC 12.6 10x3/uL (4.8-10.8)
[2017-10-21 17:23] LABS: ALBUMIN 3.1 g/dL (3.4-5.0); ANION GAP 11.2 mmol/L (8-16); BILIRUBIN - TOTAL 0.26 mg/dL (0.2-1.3); CALCIUM 9.2 mg/dL (8.5-10.1); CARBON DIOXIDE 32.9 mmol/L (21.0-32.0); CREATININE - SERUM 2.2 mg/dL (0.6-1.3); POTASSIUM - SERUM 4.1 mmol/L (3.5-5.1); PROTEIN - SERUM 6.9 g/dL (6.4-8.2)
[2017-10-21] MEDS ORDERED: BENADRYL25 MG PO (20:37)
[2017-10-21] MEDS ORDERED: AZO CRANBERRY (20:39)
[2017-10-21] MEDS ORDERED: CALADRYL (20:40)
[2017-10-22] VITALS (7 sets, daily range): BP systolic 126–187; BP diastolic 61–92; Ht 188 cm; Wt 134.3 kg
[2017-10-22 07:14] LABS: ANION GAP 12.3 mmol/L (8-16); CALCIUM 8.5 mg/dL (8.5-10.1); CARBON DIOXIDE 29.3 mmol/L (21.0-32.0); POTASSIUM - SERUM 3.6 mmol/L (3.5-5.1)
[2017-10-22 07:16] LABS: CREATININE - SERUM 1.5 mg/dL (0.6-1.3)
[2017-10-22 07:34] LABS: BASOPHILS 0.6 % (0-2); HEMATOCRIT 44.8 % (42.0-54.0); HEMOGLOBIN 14.8 g/dL (13.5-17.5); IMMATURE GRANULOCYTES 0.2 % (0-5); MCH 29.8 pg (26.0-34.0); MCV 90.1 fL (80.0-100.0); MEAN PLATELET VOLUME 9.2 fL (7.4-10.4); MONOCYTES 5.5 % (2-11); NEUTROPHILS 63.7 % (40-80); PLATELET COUNT 209 10x3/uL (130-400); RBC 4.97 10x6/uL (4.20-6.10); RDW 14.9 % (11.5-14.5)
[2017-10-22 07:45] LABS: WBC 8.9 10x3/uL (4.8-10.8)
[2017-10-23 04:01] VITALS: BP 125/88
[2017-10-23 05:24] LABS: BASOPHILS 0.7 % (0-2); HEMATOCRIT 41.7 % (42.0-54.0); HEMOGLOBIN 13.4 g/dL (13.5-17.5); IMMATURE GRANULOCYTES 0.2 % (0-5); LYMPHOCYTES 15.1 % (15-50); MCH 29.1 pg (26.0-34.0); MCHC 32.1 g/dL (31.0-37.0); MCV 90.7 fL (80.0-100.0); MEAN PLATELET VOLUME 9.2 fL (7.4-10.4); MONOCYTES 5.7 % (2-11); NEUTROPHILS 66.3 % (40-80); PLATELET COUNT 211 10x3/uL (130-400); RDW 14.9 % (11.5-14.5); WBC 9.1 10x3/uL (4.8-10.8)
[2017-10-23 05:45] LABS: ALBUMIN 2.6 g/dL (3.4-5.0); BILIRUBIN - TOTAL 0.2 mg/dL (0.2-1.3); CALCIUM 8.3 mg/dL (8.5-10.1); CARBON DIOXIDE 26.9 mmol/L (21.0-32.0); CREATININE - SERUM 1.2 mg/dL (0.6-1.3); PROTEIN - SERUM 5.8 g/dL (6.4-8.2)
[2017-10-23 05:46] LABS: ANION GAP 10.3 mmol/L (8-16); POTASSIUM - SERUM 4.2 mmol/L (3.5-5.1)
[2017-10-23 08:55] VITALS: BP 189/75
[2017-10-23 12:12] VITALS: BP 193/77
[2017-10-23 16:12] VITALS: BP 170/79
[2017-10-23 20:00] VITALS: BP 163/83
[2017-10-23 23:49] VITALS: BP 161/72
[2017-10-24 04:00] VITALS: BP 188/71
[2017-10-24 06:24] LABS: ALBUMIN 2.7 g/dL (3.4-5.0); ANION GAP 13.4 mmol/L (8-16); BILIRUBIN - TOTAL 0.1 mg/dL (0.2-1.3); CALCIUM 8.5 mg/dL (8.5-10.1); CREATININE - SERUM 1.1 mg/dL (0.6-1.3); POTASSIUM - SERUM 4.4 mmol/L (3.5-5.1)
[2017-10-24 06:56] LABS: BASOPHILS 0.6 % (0-2); EOSINOPHILS 2.9 % (0-7); HEMOGLOBIN 13.2 g/dL (13.5-17.5); IMMATURE GRANULOCYTES 0.4 % (0-5); LYMPHOCYTES 15.8 % (15-50); MCH 29.3 pg (26.0-34.0); MCHC 32.2 g/dL (31.0-37.0); MCV 91.1 fL (80.0-100.0); MONOCYTES 5.3 % (2-11); PLATELET COUNT 206 10x3/uL (130-400); RDW 14.9 % (11.5-14.5)
[2017-10-24 08:11] VITALS: BP 194/94
[2017-10-24 12:15] VITALS: BP 205/94
[2017-10-24 16:18] VITALS: BP 189/69
[2017-10-24 20:47] VITALS: BP 159/88
[2017-10-24 23:51] VITALS: BP 174/74
[2017-10-25] VITALS (14 sets, daily range): BP systolic 112–229; BP diastolic 47–97
[2017-10-25 06:34] LABS: BASOPHILS 0.6 % (0-2); EOSINOPHILS 1.2 % (0-7); HEMOGLOBIN 12.9 g/dL (13.5-17.5); IMMATURE GRANULOCYTES 0.5 % (0-5); LYMPHOCYTES 18.3 % (15-50); MCH 29.1 pg (26.0-34.0); MCHC 32.3 g/dL (31.0-37.0); MCV 90.3 fL (80.0-100.0); MEAN PLATELET VOLUME 9.2 fL (7.4-10.4); MONOCYTES 5.6 % (2-11); NEUTROPHILS 73.8 % (40-80); PLATELET COUNT 220 10x3/uL (130-400); RBC 4.43 10x6/uL (4.20-6.10); WBC 10.5 10x3/uL (4.8-10.8)
[2017-10-25 07:22] LABS: ALBUMIN 2.6 g/dL (3.4-5.0); ALKALINE PHOSPHATASE 57 U/L (46-116); ALT (SGPT) 11 U/L (10-68); BILIRUBIN - TOTAL 0.27 mg/dL (0.2-1.3); CALC OSMOLALITY 283 mosm/kg (275-300); CALCIUM 8.4 mg/dL (8.5-10.1); CARBON DIOXIDE 24.6 mmol/L (21.0-32.0); CHLORIDE - SERUM 108 mmol/L (98-107); GLUCOSE 98 mg/dL (74-106); POTASSIUM - SERUM 4.3 mmol/L (3.5-5.1); SODIUM 142 mmol/L (136-145); UREA NITROGEN 15 mg/dL (7-18); eGFR NON AFRICAN AMERICAN 78 mL/min (90-120)
[2017-10-26] VITALS (23 sets, daily range): BP systolic 127–240; BP diastolic 62–148
[2017-10-26 03:37] LABS: BASOPHILS 0.3 % (0-2); EOSINOPHILS 0.5 % (0-7); HEMATOCRIT 42.8 % (42.0-54.0); HEMOGLOBIN 13.9 g/dL (13.5-17.5); IMMATURE GRANULOCYTES 0.4 % (0-5); LYMPHOCYTES 14.7 % (15-50); MCH 29.6 pg (26.0-34.0); MCHC 32.5 g/dL (31.0-37.0); MCV 91.1 fL (80.0-100.0); MEAN PLATELET VOLUME 9.3 fL (7.4-10.4); NEUTROPHILS 77.1 % (40-80); PLATELET COUNT 241 10x3/uL (130-400); RDW 14.9 % (11.5-14.5); WBC 10.1 10x3/uL (4.8-10.8)
[2017-10-26 04:14] LABS: ALBUMIN 2.6 g/dL (3.4-5.0); ANION GAP 11.1 mmol/L (8-16); BILIRUBIN - TOTAL 0.34 mg/dL (0.2-1.3); CALCIUM 8.6 mg/dL (8.5-10.1); CARBON DIOXIDE 28.3 mmol/L (21.0-32.0); CREATININE - SERUM 1.1 mg/dL (0.6-1.3); POTASSIUM - SERUM 4.4 mmol/L (3.5-5.1); PROTEIN - SERUM 6.2 g/dL (6.4-8.2)
[2017-10-26 04:17] LABS: TROPONIN-I 2.058 ng/mL (0.000-0.060)
[2017-10-27] VITALS (23 sets, daily range): BP systolic 110–207; BP diastolic 67–122
[2017-10-27 03:59] LABS: BASOPHILS 0.8 % (0-2); EOSINOPHILS 1.8 % (0-7); HEMOGLOBIN 13.9 g/dL (13.5-17.5); IMMATURE GRANULOCYTES 0.5 % (0-5); LYMPHOCYTES 14.5 % (15-50); MCH 29.5 pg (26.0-34.0); MCHC 33.1 g/dL (31.0-37.0); MCV 89.2 fL (80.0-100.0); MONOCYTES 7.3 % (2-11); NEUTROPHILS 75.1 % (40-80); PLATELET COUNT 241 10x3/uL (130-400); RBC 4.71 10x6/uL (4.20-6.10); RDW 14.3 % (11.5-14.5); WBC 10.5 10x3/uL (4.8-10.8)
[2017-10-27 04:15] LABS: ALBUMIN 2.6 g/dL (3.4-5.0); ALKALINE PHOSPHATASE 59 U/L (46-116); ALT (SGPT) 10 U/L (10-68); BILIRUBIN - TOTAL 0.59 mg/dL (0.2-1.3); CALC OSMOLALITY 275 mosm/kg (275-300); CALCIUM 8.6 mg/dL (8.5-10.1); CARBON DIOXIDE 29.3 mmol/L (21.0-32.0); CHLORIDE - SERUM 102 mmol/L (98-107); CREATININE - SERUM 0.9 mg/dL (0.6-1.3); GLUCOSE 113 mg/dL (74-106); POTASSIUM - SERUM 3.9 mmol/L (3.5-5.1); PROTEIN - SERUM 6.4 g/dL (6.4-8.2); SODIUM 137 mmol/L (136-145); UREA NITROGEN 15 mg/dL (7-18); eGFR NON AFRICAN AMERICAN 88 mL/min (90-120)
[2017-10-28] VITALS (23 sets, daily range): BP systolic 133–225; BP diastolic 60–127
[2017-10-28 04:02] LABS: BASOPHILS 0.4 % (0-2); HEMATOCRIT 41.6 % (42.0-54.0); HEMOGLOBIN 14.1 g/dL (13.5-17.5); IMMATURE GRANULOCYTES 0.3 % (0-5); LYMPHOCYTES 15.1 % (15-50); MCH 30.1 pg (26.0-34.0); MCHC 33.9 g/dL (31.0-37.0); MCV 88.7 fL (80.0-100.0); MONOCYTES 6.9 % (2-11); NEUTROPHILS 76.3 % (40-80); PLATELET COUNT 249 10x3/uL (130-400); RBC 4.69 10x6/uL (4.20-6.10); RDW 14.4 % (11.5-14.5); WBC 9.2 10x3/uL (4.8-10.8)
[2017-10-28 04:23] LABS: ALBUMIN 2.6 g/dL (3.4-5.0); ALKALINE PHOSPHATASE 56 U/L (46-116); ALT (SGPT) 11 U/L (10-68); BILIRUBIN - TOTAL 0.43 mg/dL (0.2-1.3); CALC OSMOLALITY 277 mosm/kg (275-300); CALCIUM 8.5 mg/dL (8.5-10.1); CARBON DIOXIDE 28.7 mmol/L (21.0-32.0); CHLORIDE - SERUM 102 mmol/L (98-107); GLUCOSE 142 mg/dL (74-106); PROTEIN - SERUM 6.1 g/dL (6.4-8.2); SODIUM 137 mmol/L (136-145); UREA NITROGEN 18 mg/dL (7-18); eGFR NON AFRICAN AMERICAN 78 mL/min (90-120)
[2017-10-28 13:10] LABS: THYROID STIMULATING HORMONE 5.76 uIU/mL (0.36-3.74)
[2017-10-29] VITALS (10 sets, daily range): BP systolic 91–165; BP diastolic 59–123
[2017-10-29 04:56] LABS: BASOPHILS 0.6 % (0-2); EOSINOPHILS 1.6 % (0-7); HEMATOCRIT 43.5 % (42.0-54.0); HEMOGLOBIN 14.5 g/dL (13.5-17.5); IMMATURE GRANULOCYTES 0.5 % (0-5); LYMPHOCYTES 17.1 % (15-50); MCH 29.5 pg (26.0-34.0); MCHC 33.3 g/dL (31.0-37.0); MCV 88.6 fL (80.0-100.0); MEAN PLATELET VOLUME 9.2 fL (7.4-10.4); MONOCYTES 6.2 % (2-11); PLATELET COUNT 272 10x3/uL (130-400); RBC 4.91 10x6/uL (4.20-6.10); RDW 14.5 % (11.5-14.5); WBC 9.6 10x3/uL (4.8-10.8)
[2017-10-29 05:59] LABS: ALBUMIN 2.8 g/dL (3.4-5.0); ANION GAP 11.2 mmol/L (8-16); BILIRUBIN - TOTAL 0.35 mg/dL (0.2-1.3); CALCIUM 8.5 mg/dL (8.5-10.1); CARBON DIOXIDE 27.9 mmol/L (21.0-32.0); CREATININE - SERUM 1.1 mg/dL (0.6-1.3); MAGNESIUM - SERUM 1.9 mg/dL (1.8-2.4); PHOSPHOROUS 3.2 mg/dL (2.5-4.9); POTASSIUM - SERUM 4.1 mmol/L (3.5-5.1); PROTEIN - SERUM 6.2 g/dL (6.4-8.2)
[2017-10-30 01:02] VITALS: BP 112/52
[2017-10-30 05:58] LABS: BASOPHILS 0.4 % (0-2); EOSINOPHILS 1.7 % (0-7); HEMATOCRIT 43.2 % (42.0-54.0); HEMOGLOBIN 14.4 g/dL (13.5-17.5); IMMATURE GRANULOCYTES 0.4 % (0-5); LYMPHOCYTES 17.5 % (15-50); MCH 29.8 pg (26.0-34.0); MCHC 33.3 g/dL (31.0-37.0); MCV 89.3 fL (80.0-100.0); MONOCYTES 7.1 % (2-11); NEUTROPHILS 72.9 % (40-80); PLATELET COUNT 267 10x3/uL (130-400); RBC 4.84 10x6/uL (4.20-6.10); RDW 14.5 % (11.5-14.5); WBC 9.2 10x3/uL (4.8-10.8)
[2017-10-30 06:12] VITALS: BP 129/76
[2017-10-30 06:16] LABS: ALBUMIN 2.9 g/dL (3.4-5.0); ANION GAP 10.7 mmol/L (8-16); BILIRUBIN - TOTAL 0.43 mg/dL (0.2-1.3); CALCIUM 8.6 mg/dL (8.5-10.1); CARBON DIOXIDE 27.2 mmol/L (21.0-32.0); CREATININE - SERUM 1.2 mg/dL (0.6-1.3); POTASSIUM - SERUM 3.9 mmol/L (3.5-5.1); PROTEIN - SERUM 6.5 g/dL (6.4-8.2)
[2017-10-30 08:21] VITALS: BP 129/53
[2017-10-30 11:52] VITALS: BP 148/59
[2017-10-30 15:47] VITALS: BP 140/69
[2017-10-30 20:35] VITALS: BP 139/56
[2017-10-31 01:41] VITALS: BP 144/57
[2017-10-31 04:00] VITALS: BP 118/55
[2017-10-31 05:54] LABS: BASOPHILS 0.5 % (0-2); EOSINOPHILS 2.1 % (0-7); HEMATOCRIT 39.3 % (42.0-54.0); HEMOGLOBIN 12.7 g/dL (13.5-17.5); IMMATURE GRANULOCYTES 0.4 % (0-5); LYMPHOCYTES 20.9 % (15-50); MCH 29.1 pg (26.0-34.0); MCHC 32.3 g/dL (31.0-37.0); MCV 90.1 fL (80.0-100.0); MEAN PLATELET VOLUME 9.2 fL (7.4-10.4); MONOCYTES 10.2 % (2-11); NEUTROPHILS 65.9 % (40-80); PLATELET COUNT 246 10x3/uL (130-400); RBC 4.36 10x6/uL (4.20-6.10); RDW 14.8 % (11.5-14.5); WBC 8.1 10x3/uL (4.8-10.8)
[2017-10-31 06:22] LABS: ALBUMIN 2.6 g/dL (3.4-5.0); ALKALINE PHOSPHATASE 53 U/L (46-116); ALT (SGPT) 13 U/L (10-68); BILIRUBIN - TOTAL 0.19 mg/dL (0.2-1.3); CALC OSMOLALITY 282 mosm/kg (275-300); CALCIUM 8.4 mg/dL (8.5-10.1); CARBON DIOXIDE 26.7 mmol/L (21.0-32.0); CHLORIDE - SERUM 108 mmol/L (98-107); CREATININE - SERUM 0.9 mg/dL (0.6-1.3); GLUCOSE 119 mg/dL (74-106); POTASSIUM - SERUM 4.1 mmol/L (3.5-5.1); PROTEIN - SERUM 5.6 g/dL (6.4-8.2); SODIUM 140 mmol/L (136-145); UREA NITROGEN 21 mg/dL (7-18); eGFR NON AFRICAN AMERICAN 88 mL/min (90-120)
[2017-10-31 09:22] VITALS: BP 147/72
[2017-10-31 15:43] VITALS: BP 162/60
[2017-10-31 16:24] VITALS: BP 140/49
[2017-10-31 21:58] VITALS: BP 132/70
[2017-11-01 00:56] VITALS: BP 140/42
[2017-11-01 05:40] LABS: BASOPHILS 0.5 % (0-2); EOSINOPHILS 1.8 % (0-7); HEMATOCRIT 38.3 % (42.0-54.0); HEMOGLOBIN 12.3 g/dL (13.5-17.5); IMMATURE GRANULOCYTES 0.7 % (0-5); LYMPHOCYTES 20.7 % (15-50); MCH 29.1 pg (26.0-34.0); MCHC 32.1 g/dL (31.0-37.0); MCV 90.8 fL (80.0-100.0); MONOCYTES 7.4 % (2-11); NEUTROPHILS 68.9 % (40-80); PLATELET COUNT 243 10x3/uL (130-400); RBC 4.22 10x6/uL (4.20-6.10); WBC 8.5 10x3/uL (4.8-10.8)
[2017-11-01 06:07] LABS: ALBUMIN 2.7 g/dL (3.4-5.0); ANION GAP 8.9 mmol/L (8-16); BILIRUBIN - TOTAL 0.27 mg/dL (0.2-1.3); CALCIUM 8.6 mg/dL (8.5-10.1); CARBON DIOXIDE 27.1 mmol/L (21.0-32.0); CREATININE - SERUM 1.1 mg/dL (0.6-1.3)
[2017-11-01 06:10] VITALS: BP 139/61
[2017-11-01 08:25] VITALS: BP 173/65
[2017-11-01 12:09] LABS: HEMATOCRIT 33.6 % (42.0-54.0); HEMOGLOBIN 10.9 g/dL (13.5-17.5)
[2017-11-01 20:00] VITALS: BP 124/69
[2017-11-01 23:33] VITALS: BP 118/53
[2017-11-02 04:00] VITALS: BP 129/82
[2017-11-02 05:33] LABS: BASOPHILS 0.2 % (0-2); EOSINOPHILS 0.4 % (0-7); HEMATOCRIT 34.1 % (42.0-54.0); HEMOGLOBIN 10.9 g/dL (13.5-17.5); IMMATURE GRANULOCYTES 0.3 % (0-5); LYMPHOCYTES 16.5 % (15-50); MCH 29.1 pg (26.0-34.0); MCV 90.9 fL (80.0-100.0); MONOCYTES 6.8 % (2-11); NEUTROPHILS 75.8 % (40-80); PLATELET COUNT 251 10x3/uL (130-400); RBC 3.75 10x6/uL (4.20-6.10); RDW 15.2 % (11.5-14.5); WBC 9.8 10x3/uL (4.8-10.8)
[2017-11-02 05:53] LABS: ALBUMIN 2.7 g/dL (3.4-5.0); ANION GAP 8.9 mmol/L (8-16); BILIRUBIN - TOTAL 0.37 mg/dL (0.2-1.3); CALCIUM 8.7 mg/dL (8.5-10.1); CARBON DIOXIDE 29.5 mmol/L (21.0-32.0); CREATININE - SERUM 1.2 mg/dL (0.6-1.3); POTASSIUM - SERUM 4.4 mmol/L (3.5-5.1); PROTEIN - SERUM 5.7 g/dL (6.4-8.2)
[2017-11-02 07:45] VITALS: BP 93/73
[2017-11-02] MEDS ORDERED: PLAVIX75 MG PO (09:39)
[2017-11-02] MEDS ORDERED: LEVAQUIN500 MG PO (09:39)
[2017-11-02] MEDS ORDERED: NICODERM C1 PATCH .3 TRANSDERM (09:39)
[2017-11-02] MEDS ORDERED: CARDURA4 MG PO (09:40)
[2017-11-02] MEDS ORDERED: SINGULAIR10 MG PO (09:41)
[2017-11-02] MEDS ORDERED: BETAPACE 80 MG80 MG PO (09:41)
[2017-11-02] MEDS ORDERED: ASPIRIN81 MG PO (09:41)
[2017-11-02] MEDS ORDERED: PROCARDIA XL PO (09:41)
[2017-11-02] MEDS ORDERED: PROTONIX40 MG PO (09:42)
[2017-11-02] MEDS ORDERED: ZYLOPRIM300 MG PO (09:43)
[2017-11-02] MEDS ORDERED: PREDNISONE20 MG PO (09:43)
== END 2017-11-02 13:20 | disposition home or self-care (01) | DRG 853 ==
LOC: D.ER 15:17 → D.ICU 18:20 → D.M2 18:20 → D.EDHOLD 18:20 → D.MS 18:20 → D.ICU 10-25 15:17 → D.M2 10-29 16:30
PROVIDERS: Family Medicine; Internal Medicine Interventional Cardiology; Internal Medicine Nephrology
PROC: 0HBEXZX Excision of Left Lower Arm Skin, External Approach, Diagnostic (ICD-10-PCS; principal; 2017-10-22)
PROC: 4A023N7 Measurement of Cardiac Sampling and Pressure, Left Heart, Percutaneous Approach (ICD-10-PCS; 2017-10-29)
PROC: B2151ZZ Fluoroscopy of Left Heart using Low Osmolar Contrast (ICD-10-PCS; 2017-10-29)
PROC: B241ZZ3 Ultrasonography of Multiple Coronary Arteries, Intravascular (ICD-10-PCS; 2017-10-29)
PROC: 02713EZ Dilation of Coronary Artery, Two Arteries with Two Intraluminal Devices, Percutaneous Approach (ICD-10-PCS; 2017-10-29 12:00)
PROC: 02703DZ Dilation of Coronary Artery, One Artery with Intraluminal Device, Percutaneous Approach (ICD-10-PCS; 2017-11-01)
PROC: B240ZZ3 Ultrasonography of Single Coronary Artery, Intravascular (ICD-10-PCS; 2017-11-01)
DX: A41.9 Sepsis, unspecified organism (principal); J18.9 Pneumonia, unspecified organism; I21.A1 Myocardial infarction type 2; L03.114 Cellulitis of left upper limb; N17.9 Acute kidney failure, unspecified; I50.32 Chronic diastolic (congestive) heart failure; J44.0 Chronic obstructive pulmonary disease with (acute) lower respiratory infection; J44.1 Chronic obstructive pulmonary disease with (acute) exacerbation; E11.9 Type 2 diabetes mellitus without complications; E86.0 Dehydration; I10 Essential (primary) hypertension; F17.200 Nicotine dependence, unspecified, uncomplicated; L27.0 Generalized skin eruption due to drugs and medicaments taken internally; I08.1 Rheumatic disorders of both mitral and tricuspid valves

== ENCOUNTER → 2017-11-12 10:47 | Outpatient (CLI) | payer MEDICARE, MEDICAID ==
[2017-10-22 16:53] VITALS: BMI 34.6
[~2017-11-12 10:47] MED LIST: ASPIRIN81 MG PO; AZO CRANBERRY; BENADRYL25 MG PO; BETAPACE 80 MG80 MG PO; BYSTOLIC5 MG PO; CALADRYL; CARDURA4 MG PO; FUROSEMIDE20 MG PO; GEMFIBROZIL600 MG PO; GLUCOPHAGE1000 MG PO; LEVAQUIN500 MG PO; NICODERM C1 PATCH .3 TRANSDERM; PLAVIX75 MG PO; PREDNISONE20 MG PO; PROCARDIA XL PO; PROTONIX40 MG PO; SINGULAIR10 MG PO; VASOTEC20 MG PO; VIBRAMYCIN 100100 MG; ZYLOPRIM300 MG PO
== END | disposition home or self-care (01) ==
LOC: D.RAD 10:47
DX: J18.9 Pneumonia, unspecified organism (principal)

== ENCOUNTER 2017-12-02 06:47 | Outpatient (CLI) | payer MEDICARE, MEDICAID ==
[~2017-12-02] VITALS: Ht 188 cm; Wt 125.9 kg
[2017-12-02 07:26] LABS: CALC OSMOLALITY 284 mosm/kg (275-300); CALCIUM 8.6 mg/dL (8.5-10.1); CARBON DIOXIDE 32.3 mmol/L (21.0-32.0); CHLORIDE - SERUM 106 mmol/L (98-107); CREATININE - SERUM 0.9 mg/dL (0.6-1.3); GLUCOSE 98 mg/dL (74-106); POTASSIUM - SERUM 4.4 mmol/L (3.5-5.1); SODIUM 143 mmol/L (136-145); UREA NITROGEN 13 mg/dL (7-18); eGFR NON AFRICAN AMERICAN 88 mL/min (90-120)
[2017-12-02 07:30] LABS: BASOPHILS 0.3 % (0-2); EOSINOPHILS 2.7 % (0-7); HEMATOCRIT 38.5 % (42.0-54.0); HEMOGLOBIN 12.1 g/dL (13.5-17.5); IMMATURE GRANULOCYTES 0.4 % (0-5); LYMPHOCYTES 13.6 % (15-50); MCH 29.6 pg (26.0-34.0); MCHC 31.4 g/dL (31.0-37.0); MCV 94.1 fL (80.0-100.0); MONOCYTES 7.4 % (2-11); NEUTROPHILS 75.6 % (40-80); PLATELET COUNT 257 10x3/uL (130-400); RBC 4.09 10x6/uL (4.20-6.10); RDW 16.9 % (11.5-14.5); WBC 7.4 10x3/uL (4.8-10.8)
[2017-12-02 07:48] LABS: APTT 32.2 SECONDS (22.8-39.4); INR 0.97 (0.85-1.17); PROTIME 12.5 SECONDS (11.6-15.0)
[2017-12-02] MEDS ORDERED: FUROSEMIDE20 MG PO (08:40)
[2017-12-02 08:51] VITALS: BP 166/68; Ht 188 cm; Wt 125.9 kg
== END 2017-12-02 10:00 | disposition home or self-care (01) ==
LOC: D.SP 06:47
PROVIDERS: General Practice
DX: I51.7 Cardiomegaly (principal); J90 Pleural effusion, not elsewhere classified

== ENCOUNTER 2018-07-14 12:52 | Emergency (ER) | payer MEDICARE, MEDICAID ==
[~2018-07-14] VITALS: Ht 188 cm; Wt 113.6 kg
[2018-07-14 13:08] VITALS: Ht 188 cm; Wt 113.6 kg
[2018-07-14 14:42] LABS: BASOPHILS 0.4 % (0-2); HEMATOCRIT 42.7 % (42.0-54.0); HEMOGLOBIN 13.6 g/dL (13.5-17.5); IMMATURE GRANULOCYTES 0.2 % (0-5); LYMPHOCYTES 13.6 % (15-50); MCH 29.6 pg (26.0-34.0); MCHC 31.9 g/dL (31.0-37.0); MEAN PLATELET VOLUME 9.2 fL (7.4-10.4); MONOCYTES 7.9 % (2-11); NEUTROPHILS 75.9 % (40-80); PLATELET COUNT 233 10x3/uL (130-400); RBC 4.59 10x6/uL (4.20-6.10); RDW 14.5 % (11.5-14.5); WBC 10.1 10x3/uL (4.8-10.8)
[2018-07-14 15:15] LABS: ALBUMIN 3.2 g/dL (3.4-5.0); ANION GAP 15.6 mmol/L (8-16); BILIRUBIN - TOTAL 0.46 mg/dL (0.2-1.3); CALCIUM 8.7 mg/dL (8.5-10.1); CARBON DIOXIDE 27.3 mmol/L (21.0-32.0); CREATININE - SERUM 1.3 mg/dL (0.6-1.3); POTASSIUM - SERUM 3.9 mmol/L (3.5-5.1); PROTEIN - SERUM 6.6 g/dL (6.4-8.2)
[2018-07-14 15:20] LABS: UDS - AMPHET NEGATIVE QUAL (NEGATIVE); UDS - BARB NEGATIVE QUAL (NEGATIVE); UDS - BENZO POSITIVE QUAL (NEGATIVE); UDS - COCAINE NEGATIVE QUAL (NEGATIVE); UDS - OPIATE NEGATIVE QUAL (NEGATIVE); UDS - PCP NEGATIVE QUAL (NEGATIVE); UDS - THC NEGATIVE QUAL (NEGATIVE)
[2018-07-14 15:25] LABS: MAGNESIUM - SERUM 1.8 mg/dL (1.8-2.4); THYROID STIMULATING HORMONE 5.13 uIU/mL (0.36-3.74)
[2018-07-14 15:58] LABS: APPEARANCE SL CLDY (CLEAR); COLOR DK YELLOW (YELLOW); SPECIFIC GRAVITY 1.025 (1.005-1.020)
[2018-07-14 15:59] LABS: BILIRUBIN NEGATIVE (NEGATIVE); GLUCOSE NEGATIVE (NEGATIVE); KETONE NEGATIVE (NEGATIVE); NITRITE NEGATIVE (NEGATIVE); PROTEIN 2+ mg/dL (NEGATIVE); UROBILINOGEN NORMAL (NORMAL)
[2018-07-14 16:03] LABS: RED CELLS - URINE 25-50 /hpf (0-5); WHITE CELLS - URINE 0-5 /hpf (0-5)
[2018-07-14 16:04] LABS: AMORPHOUS SEDIMENT <1+ /lpf (NONE SEEN); BACTERIA MODERATE /hpf (NONE SEEN); EPITHELIAL CELLS 0-5 /hpf (0-5); MUCUS <1+ /lpf (NONE SEEN)
[2018-07-14 22:21] VITALS: BP 104/70
== END 2018-07-14 22:22 ==
LOC: D.ER 12:52
PROVIDERS: Emergency Medicine
DX: R41.82 Altered mental status, unspecified (principal)